=== PATIENT | male | born 1945 | race Caucasian/White ===

== ENCOUNTER 2019-12-01 12:46 | Outpatient (CLI) | payer OTHER, SELFPAY ==
--- NOTE | 2019-12-01 13:40 | PFTS_ITS ---
Date of Study:12/01/19 Date of Dictation: MECHANICS: Forced vital capacity (FVC) is normal. Forced expiratory volume in one second (FEV1) is normal. FEV1/FVC is normal. FLOW VOLUME LOOP: Mild scooping. LUNG VOLUMES: Not measured DIFFUSING CAPACITY FOR CARBON MONOXIDE: Measured INTERPRETATION: Spirometry is normal. There is no significant postbronchodilator response. The mild scooping on flow volume loop might represent small airways disease or age- related changes. MTDD
== END 2019-12-01 12:47 | disposition home or self-care (01) ==
LOC: RT 12:47
PROVIDERS: Visit Provider Orthopaedic Surgery
DX: C34.90 Malignant neoplasm of unspecified part of unspecified bronchus or lung (principal)
CPT/HCPCS: 94060; J7611